=== PATIENT | female | born 1975 | race Caucasian/White ===

== ENCOUNTER 2024-05-10 06:15 | Day surgery (SDC) | payer BC, SELFPAY ==
[2024-05-10 06:22] VITALS: BP 157/85; PULSE 70; RESP 18; TEMP 36.6; O2SAT 97; BMI 24.3
--- NOTE | 2024-05-10 07:11 | ED.GENADULT ---
HPI - General Adult General Chief complaint: General Medical Stated complaint: feels like something is stuck in her throat Time Seen by Provider: 05/10/24 07:06 Source: patient and old records reviewed Mode of arrival: ambulatory Limitations: no limitations History of Present Illness ED Provider: CAROLINA DAVIS narrative: 48 yo female with PMH of hypothyroidism here with c/o eating steak and potatoes she then felt the food get stuck this happened at 630pm yesterday. She tried water, carbonated beverages, marshmellows but it did not help. She has never had EGD before, does not take antacids. She is not on thinners. She cannot tolerate saliva or liquids still. MD complaint: food bolus Onset (ago): day(s) (630pm yesterday) Location: mouth Radiation: non-radiation Severity: moderate Quality: dull Pain Consistency: intermittent Relieving factors: none Exacerbating factors: other (swallowing) Associated symptoms: denies other symptoms Treatments prior to arrival: other Related Data Allergies Allergy/AdvReac Type Severity Reaction Status Date / Time No Known Allergies Allergy Verified 05/10/24 06:24 Review of Systems Review of Systems: Constitutional : No Fever, No Chills, No Fatigue ENT/Mouth : No sore throat, No Rhinorrhea Eyes: No Eye Pain, No Swelling, No Redness Cardiovascular : No Chest Pain, No SOB, No Dyspnea on Exertion Respiratory : No Cough, No Sputum Gastrointestinal : No Nausea, No Vomiting, No Diarrhea, No abdominal Pain Genitourinary : No Dysuria, No Urinary Frequency, No Hematuria, Musculoskeletal : No joint pain, No Myalgias, No Joint Swelling Skin : No Skin Lesions, No rash Neuro : No Weakness, No Numbness, No Dizziness, no Headache All other systems reviewed and are negative [facility] Past Medical History Attestation statement: The following information was validated with the patient. Medical History Hypothyroidism Social History Social History (Updated 05/10/24 @ 07:33 by Adela Arnold DO) Patient Tobacco Use Status: Never used Tobacco Advance Directives: No Advance Directives Information Provided: No Do you have a plan to hurt others: No Plan Physical Exam ED Vital Signs: Vital Signs - 24 hr 05/10/24 06:22 Temperature 97.8 F Pulse Rate 70 Respiratory Rate 18 Blood Pressure 157/85 H Pulse Oximetry 97 Oxygen Delivery Method Room Air BMI result Body Mass Index 24.3 Appearance: Alert. Oriented X3. No acute distress. Eyes: Pupils equal, round and reactive to light. ENT: Pharynx normal. Neck: Normal inspection. Neck supple. CVS: Normal heart rate and rhythm. Pulses normal. Respiratory: No respiratory distress. Breath sounds normal. Abdomen: Soft and non-tender. Skin: Skin warm and dry. Normal skin color. Extremities: No lower extremity edema. Neuro: Oriented X 3. No motor deficit. No sensory deficit. Course Course Course Narrative: no response to glucagon or nitro slurry Medications Administered Generic Name Dose Route Start Last Admin Trade Name Freq PRN Reason Stop Dose Admin Lactated Ringer's 1,000 mls @ 999 mls/hr 05/10/24 07:34 05/10/24 07:50 Lr IV 05/10/24 08:34 999 mls/hr .Q1H1M ONE Administration Discontinued Medications Generic Name Dose Route Start Last Admin Trade Name Freq PRN Reason Stop Dose Admin Glucagon 1 mg 05/10/24 07:10 05/10/24 07:29 Glucagon Hcl 1 Mg Vial IVPUSH 05/10/24 07:11 1 mg ONCE ONE Administration Nitroglycerin 0.4 mg 05/10/24 07:34 05/10/24 07:45 Nitroglycerin 0.4 Mg Tab.Subl SUBLINGUAL 05/10/24 07:35 0.4 mg ONCE ONE Administration Medical Decision Making Medical Decision Making [facility] Narrative: 48 yo female with PMH of hypothyroidism here with c/o food bolus impaction at this time will try glucagon and then start on fluids and oral nitroglycerin. If that does not work will consult GI for endoscopy. Suspect food bolus impaction. Differential Diagnosis Differential Diagnoses: The differential diagnosis associated with the presentation includes food bolus impaction, stricture Admission/Observation Consideration of admission/observation: Escalation of care including admission/observation considered admit to short stay surgery for EGD Consult Healthcare Provider Management of the patient was discussed with: [facility] Nurse (Dr. Wellington sanchez) Lab Data [facility] Lab Attestation statement: I reviewed the patient's lab results. 05/10/24 07:29 05/10/24 07:29 Labs: Lab Results 05/10/24 Range/Units 07: WBC 8.2 (4.8-10.8) X10*3/uL RBC 5.16 (4.20-5.50) X10*6/uL Hgb 16.0 (12.0-16.0) g/dl Hct 45.1 (37.0-47.0) % MCV 87.4 (80.0-98.0) fL MCH 31.0 (27.0-33.0) pg MCHC 35.5 H (31.0-35.0) g/dl RDW 12.4 (11.0-16.0) % Plt Count 238 (160-400) X10*3/uL MPV 10.0 (9.4-12.3) fL Immature Gran % (Auto) 0.4 (0.0-0.4) % Neut % (Auto) 68.8 (45-73) % Lymph % (Auto) 19.5 L (20-40) % [place] % (Auto) 6.7 (2-11) % Eos % (Auto) 3.9 (0-4) % Baso % (Auto) 0.7 (0-2) % Lymph # (Auto) 1.6 (1.2-4.9) X10*3/uL [place] # (Auto) 0.6 (0.1-1.2) X10*3/uL Eos # (Auto) 0.3 (0.0-0.4) X10*3/uL Baso # (Auto) 0.1 (0.0-0.2) X10*3/uL Abs Immat Gran (auto) 0.03 (0.00-0.03) X10*3/uL Absolute Neuts (auto) 5.7 (2.0-8.3) x10*3/uL Absolute Nucleated RBC 0.000 (0.0-0.012) X10*3/uL Nucleated RBC % (auto) 0.0 (0.0-0.2) /100WBC PT 11.2 (11.1-13.3) SEC INR 0.9 (0.9-1.1) Sodium 144 (135-145) mmol/L Potassium 4.2 (3.3-5.1) mmol/L Chloride 107 (96-108) mmol/L Carbon Dioxide 27 (22-29) mmol/L Anion Gap 14 (12-20) BUN 14 (9-16) mg/dL Creatinine 0.76 (0.5-1.4) mg/dL Estim Creat Clear Calc 64.5 Estimated GFR > 60 Random Glucose 112 (60-115) mg/dL Calcium 10.1 (8.4-10.2) mg/dL Independent Historian Clinical information obtained from an independent historian. History obtained from or confirmed by: Spouse Discharge Plan Discharge Clinical Impression: Food impaction of esophagus Patient Disposition: Admitted as Observation Print Language: Austrian
[2024-05-10] MEDS: glucagon HCL 1 MG VIAL IVPUSH (07:29)
[2024-05-10 07:34] LABS: MANUAL DIFF FLAG NO
[2024-05-10 07:39] LABS: Basophils Absolute Auto 0.1 X10*3/uL (0.0-0.2); Basophils Percent Auto 0.7 % (0-2); Eosinophils Absolute Auto 0.3 X10*3/uL (0.0-0.4); Eosinophils Percent Auto 3.9 % (0-4); Hematocrit 45.1 % (37.0-47.0); Imm Gran Abs Auto 0.03 X10*3/uL (0.00-0.03); Imm Gran Pct Auto 0.4 % (0.0-0.4); Lymphocytes Absolute Auto 1.6 X10*3/uL (1.2-4.9); Lymphocytes Percent Auto 19.5 % (20-40); Mean Corpuscular HGB Conc 35.5 g/dl (31.0-35.0); Mean Corpuscular Volume 87.4 fL (80.0-98.0); Monocytes Absolute Auto 0.6 X10*3/uL (0.1-1.2); Monocytes Percent Auto 6.7 % (2-11); Neutrophils Absolute Auto 5.7 x10*3/uL (2.0-8.3); Neutrophils Percent Auto 68.8 % (45-73); Platelet Count 238 X10*3/uL (160-400); Red Blood Count 5.16 X10*6/uL (4.20-5.50); Red Cell Distribution Width 12.4 % (11.0-16.0); White Blood Count 8.2 X10*3/uL (4.8-10.8)
[2024-05-10] MEDS: Nitroglycerin 0.4 MG TAB.SUBL SUBLINGUAL (07:45)
[2024-05-10 07:46] LABS: INTERNATIONAL NORM RATIO 0.9 (0.9-1.1); Prothrombin Time 11.2 SEC (11.1-13.3)
[2024-05-10] MEDS: Lactated Ringers 1,000 ML 999 ML IV (07:50)
[2024-05-10 07:55] LABS: Anion Gap 14 (12-20); Blood Urea Nitrogen 14 mg/dL (9-16); Calcium 10.1 mg/dL (8.4-10.2); Carbon Dioxide 27 mmol/L (22-29); Chloride 107 mmol/L (96-108); Creatinine Clr Calc Pharmacy 64.5; Estimated Glomerular Filt Rate > 60; Glucose Random 112 mg/dL (60-115); Potassium 4.2 mmol/L (3.3-5.1); Sodium 144 mmol/L (135-145)
[2024-05-10] MEDS: LORazepam 2 MG/ML VIAL 0.5 MG IVPUSH (08:12)
[2024-05-10] MEDS: ondansetron HCL 4 MG/2 ML VIAL IVPUSH (08:12)
--- NOTE | 2024-05-10 08:31 | P.CNGI_ITS ---
History of Present Illness Data of Consult Service Date: 05/10/24 Requesting physician: Adela Arnold Primary Care Provider: Akil Betts MD HPI Reason for consult: dysphagia/food impaction 48 YF with hypothyroidism seen at [facility] ED on 05/09/24 with dysphagia due to food impaction. Pt states she was eating steak and potatoes yesterday evening around 6:30 pm and had 2 pieces of steak and felt the food get stuck in the upper esophagus. She tried water, carbonated beverages, marshmellows but it did not help. Pt gives a hx of occasional self limited episodes of dysphagia to solids for the past several months. Dysphagia symptoms would resolve and she did not have to seek medical attention She denies heartburn, asthma or food allergies. She has never had EGD before, does not take antacids. Pt admits to having a colonoscopy a year ago at [facility] [place] [facility] - negative per patient. Pt denies cardiac or pulmonary problems, loud snoring or sleep apnea. She denies being on anticoagulation. In the ED pt was treated with glucagon and Nitro slurry without improvement in her symptoms and states she is unable to tolerate saliva or liquids still. She feels some improvement in chest tightness after she was given Ativan and Zofran. Pt admits to taking ETOH occasionally and denies smoking. She known family history GERD, colon polyps or GI malignancy. 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 Review of Systems 2 Review of Systems: Constitutional : No Fever, No Chills, No Fatigue ENT/Mouth : No sore throat, No Rhinorrhea Eyes: No Eye Pain, No Swelling, No Redness Cardiovascular : No Chest Pain, No SOB, No Dyspnea on Exertion Respiratory : No Cough, No Sputum Gastrointestinal : No Nausea, No Vomiting, No Diarrhea, No abdominal Pain Genitourinary : No Dysuria, No Urinary Frequency, No Hematuria, Musculoskeletal : No joint pain, No Myalgias, No Joint Swelling Skin : No Skin Lesions, No rash Neuro : No Weakness, No Numbness, No Dizziness, no Headache All other systems reviewed and are negative [facility] Past Medical History Medical History Hypothyroidism Social History Social History (Updated 05/10/24 @ 07:33 by Adela Arnold DO) Patient Tobacco Use Status: Never used Tobacco Smoked in Last 30 Days: No Use of substances other than those prescribed or required for medical reasons: No Advance Directives: No Advance Directives Information Provided: No Do you have a plan to hurt others: No Plan Patient : No Meds Allergies Allergy/AdvReac Type Severity Reaction Status Date / Time No Known Allergies Allergy Verified 05/10/24 06:24 Active Medications: Current Medications Lactated Ringer's (Lr) 1,000 mls @ 999 mls/hr IV .Q1H1M ONE Stop: 05/10/24 08:34 Last Admin: 05/10/24 07:50 Dose: 999 mls/hr Lactated Ringer's (Lr) 1,000 mls @ 100 mls/hr IVCONT .Q10H MICHELLE Physical Exam 2 Vital Signs: Vital Signs: Last Vital Signs Temp 97.8 F 05/10/24 06:22 Pulse 70 05/10/24 06:22 Resp 18 05/10/24 06:22 BP 157/85 H 05/10/24 06:22 Pulse Ox 97 05/10/24 06:22 O2 Del Method Room Air 05/10/24 06:22 BMI result Body Mass Index 24.3 Const: General: healthy appearing and no acute distress Nutritional Appearance: average body habitus Orientation/consciousness: patient oriented x3 Limitations: no limitations HEENT: Head: Yes normal to inspection Ears: hearing grossly normal bilaterally Mouth: Normal oral and palatal mucosa present Eyes: Sclerae: sclerae normal Pupils: Equal, round and reactive pupils present Neck: Neck: Yes normal visual inspection Chest: Chest palpation & inspection: normal inspection of the chest Resp: Effort & Inspection: normal respiratory effort Auscultation: clear to auscultation bilaterally Cardio: Palpation: normal PMI Rate: regular rate Rhythm: regular rhythm Heart sounds: S1 normal heart sound present, S2 normal heart sound present and no murmurs GI: Palpation (GI): Soft to palpation, nontender and No hepatosplenomegaly present Auscultation: normal bowel sounds Rectal Exam - Female: deferred Skin: General skin exam: no rashes or lesions noted Neuro: General: patient oriented x3, gait normal and moves all extremities Cranial nerves: Yes Equal, round and reactive pupils present Psych: Appearance: grossly normal Mental Status: mental status grossly normal Results Labs 05/10/24 07:29 05/10/24 07:29 Labs: Short CBC 05/10/24 Range/Units 07:29 WBC 8.2 (4.8-10.8) X10*3/uL Hgb 16.0 (12.0-16.0) g/dl Hct 45.1 (37.0-47.0) % Plt Count 238 (160-400) X10*3/uL BMP 05/10/24 07:29 Sodium 144 Potassium 4.2 Chloride 107 Carbon Dioxide 27 BUN 14 Creatinine 0.76 Calcium 10.1 Assessment and Plan (1) Food impaction of esophagus: Qualifiers: Encounter type: initial encounter Qualified Code(s): T18.128A - Food in esophagus causing other injury, initial encounter; W44.F3XA - Food entering into or through a natural orifice, initial encounter Status: Acute (2) Dysphagia, pharyngoesophageal phase: Status: Acute Plan 48 YF with hypothyroidism seen at [facility] ED on 05/09/24 with dysphagia due to food impaction. Pt states she was eating steak and potatoes yesterday evening around 6:30 pm and had 2 pieces of steak and felt the food get stuck in the upper esophagus. In the ED, pt was treated with glucagon and Nitro slurry without relief of her symptoms. She noted some improvement in chest tightness after receiving ondansetron and ativan RECOMMENDATIONS: 1. Proceed with urgent upper endoscopy today for removal of food bolus EGD procedure and potential complications including bleeding, perforation, reaction to anesthetics and aspiration were reviewed with the patient and her who was at the bedside. Procedures Date of Service Date of Service: 05/10/24
[2024-05-10 08:33] VITALS: BP 112/65; PULSE 67; RESP 16; O2SAT 100
[2024-05-10] MEDS: Lactated Ringers 1,000 ML 100 ML IVCONT (08:50)
--- NOTE | 2024-05-10 09:34 | PC.NURSE ---
report called to OR, patient to be transferred via wheelchair for procedure
[2024-05-10 09:39] LABS: Urine Pregnancy NEGATIVE (NEGATIVE)
[2024-05-10 09:40] LABS: UPreg QC Valid YES
--- NOTE | 2024-05-10 09:40 | P.CONAN_ITS ---
HPI - Anesthesia Eval Consult details Narrative: Esophagus food impaction PMFSH Active Problems Active Problems: All Active Problems Food impaction of esophagus (Acute) Past Medical History Medical History Hypothyroidism Family History Family history of problems with anesthesia: No Surgical History History of Problems with Anesthesia: No Social History Social History (Updated 05/10/24 @ 07:33 by Adela Arnold DO) Patient Tobacco Use Status: Never used Tobacco Smoked in Last 30 Days: No Use of substances other than those prescribed or required for medical reasons: No Advance Directives: No Advance Directives Information Provided: No Do you have a plan to hurt others: No Plan Patient : No Meds Allergies Allergy/AdvReac Type Severity Reaction Status Date / Time No Known Allergies Allergy Verified 05/10/24 06:24 Active Medications: Current Medications Lactated Ringer's (Lr) 1,000 mls @ 100 mls/hr IVCONT .Q10H MICHELLE Last Admin: 05/10/24 08:50 Dose: 100 mls/hr Exam Height,Weight and Vital Signs: Height 4 ft 10 in Weight 52.8 kg Last Vital Signs Temp 97.8 F 05/10/24 06:22 Pulse 67 05/10/24 08:33 Resp 16 05/10/24 08:33 BP 112/65 05/10/24 08:33 Pulse Ox 100 05/10/24 08:33 O2 Del Method Room Air 05/10/24 08:33 Pertinent Lab Results Pertinent Lab Results: Laboratory Tests 05/10/24 05/10/24 07:29 09:27 WBC 8.2 RBC 5.16 Hgb 16.0 Hct 45.1 MCV 87.4 MCH 31.0 MCHC 35.5 H RDW 12.4 Plt Count 238 MPV 10.0 Immature Gran % (Auto) 0.4 Neut % (Auto) 68.8 Lymph % (Auto) 19.5 L [place] % (Auto) 6.7 Eos % (Auto) 3.9 Baso % (Auto) 0.7 Lymph # (Auto) 1.6 [place] # (Auto) 0.6 Eos # (Auto) 0.3 Baso # (Auto) 0.1 Abs Immat Gran (auto) 0.03 Absolute Neuts (auto) 5.7 Absolute Nucleated RBC 0.000 Nucleated RBC % (auto) 0.0 PT 11.2 INR 0.9 Sodium 144 Potassium 4.2 Chloride 107 Carbon Dioxide 27 Anion Gap 14 BUN 14 Creatinine 0.76 Estim Creat Clear Calc 64.5 Estimated GFR > 60 Random Glucose 112 Calcium 10.1 Urine Test NEGATIVE Airway Mallampati Class: I TM Dist: >3cm Neck ROM: Full Loose/Missing/Broken Teeth: No Heart: RRR Lungs: CTA Assessment and Plan Assessment Anesthesia Assessment: Anesthesia Plan Discussed and Chart Reviewed Final Anesthetic Review Family History of Problems with Anesthesia: No History of Problems with Anesthesia: No NPO: No ASA Class: II Final Preanesthetic Review: No Changes in Pt Med Stat, Meds/Allgs Chart Reviewed, Consent Obtained/Reviewed and Anes Risks/Benef Reviewed Patient Risk: Intermediate Procedure Risk: Low Assessment/Block/Sedation in SS: Assess/Block/Sedation-SS Anesthetic Plan Anesthetic Plan: GA Disposition: Standard PACU
--- NOTE | 2024-05-10 10:04 | W.PM.OPN ---
Operative Note Operative Note Date of Service: 05/10/24 Narrative: FLEXIBLE TRANSORAL UPPER GASTROINTESTINAL ENDOSCOPY WITH BIOPSIES Pre-op diagnosis: Dysphagia, food impaction Post-op diagnosis: dysphagia likely due to suspected eosinophilic esophagitis, esophageal polyp Endoscopist:? Tsering Paris MD Anesthesia:?MAC UPPER ENDOSCOPY Consent: Indications for the procedure and potential complications of bleeding, perforation, reaction to medications and missed diagnosis were discussed with the patient and informed consent was obtained. Instrument: Olympus GIF H 190 mid size upper endoscope Monitoring: Vital signs and clinical assessment, continuous EKG monitoring, Pulse oximetry, Carbon Dioxide monitoring and blood pressure monitoring were done throughout the procedure. Procedure: The patient was placed in the left lateral decubitis position and pre-procedure medications were administered and a bite block was placed. The endoscope was inserted into the mouth and advanced under direct vision to the third part of duodenum. A careful inspection was made as the upper endoscope was withdrawn including a retroflexed examination of the proximal stomach; Findings and interventions are described below. Findings: Larynx: Normal Esophagus: GE junction at 32 cms. No food bolus was seen - likely passed into the stomach. Mucosa of distal esophagus appeared raw and inflammed. A 2 - 3 mm polyp in the distal esophagus at 30 cms - biopsied Mildly tortuous esophagus with linear furrows suggestive of EOE. Biopsies were obtained from the proximal, mid and distal esophagus to check for EOE Stomach: Normal gastric mucosa with a food bolus lying in the gastric body. Grade 2 flap valve on retroflexed examination of the cardia. Duodenum: Normal bulb and descending duodenum Intervention: Biopsies as noted above Impression and Post Procedure Diagnosis: Endoscopy Findings: ESOPHAGUS: No food impaction seen - Food bolus had passed into the stomach likely just prior to EGD Linear furrows and exudate in the esophagus - biopsied to check for EOE STOMACH: Normal with food bolus in the gastric body Plan: Pt can be discharged home today I will contact the patient with biopsy results Omeprazole 20 mg twice daily Repeat EGD with dilation and esophageal biopsies in 3-4 months (if diagnosis of EOE is confirmed or if pt continues to have dysphagia) Above findings were reviewed with the patient and relevant handouts were given and the discharge area.
[2024-05-10 10:10] VITALS: BP 95/47; PULSE 69; RESP 17; TEMP 36.4; O2SAT 96
[2024-05-10 10:25] VITALS: BP 114/70; PULSE 69; RESP 16; O2SAT 95
[2024-05-10 10:40] VITALS: BP 110/68; PULSE 65; RESP 16; O2SAT 96
[2024-05-10 10:55] VITALS: BP 119/69; PULSE 65; RESP 16; TEMP 36.4; O2SAT 96
--- OUTSIDE RECORDS SUMMARY | 2024-05-11 00:35 | XMS_ITS | Continuity of Care Document ---
Author Organization [facility] Daniel Yury Address [address] [place] [address]- Care Team Providers Care House Wirer Helper Name Role Phone Akil Betts MD Primary Care Physician [phone] Encounter [facility] Date(s): 08/31/23 - 09/07/23 [facility] Adult [address] [place] [address]- Encounter Diagnosis Hypothyroidism(Discharge Diagnosis) - 08/31/23 Hypercholesterolemia(Discharge Diagnosis) - 08/31/23 Attending Physician: Akil Betts MD Allergies, Adverse Reactions, Alerts No Known Allergies Immunizations Given and Recorded Vaccine Date Status Refusal Reason SARS-CoV-2 (COVID-19) mRNA-1273 vaccine 12/20/20 R ecorded SARS-CoV-2 (COVID-19) mRNA-1273 vaccine 11/22/20 R ecorded Influenza Virus Vaccine (oldterm) 06/22/20 Recorde d tetanus/diphtheria/pertussis, acel(Tdap) 07/06/15 Given FluLaval (oldterm) 1 08/18/10 Given Tetanus Toxoid Vaccine (oldterm) 09/17/04 Given 1Admin Note: [facility] [place] Medications atorvastatin 10 mg oral tablet 1 tablet = 10 mg, By Mouth, Daily, # 90 tablet, 3 Refills, Maintenance, 08/31/23 13:39:00 EST, [facility], Partial fill upon patient request if the prescription is for a schedule II opioid drug., 147.5, cm, 08/31/23 13:27:00 EST, Height Start Date: 08/31/23 Status: Ordered levothyroxine 0.05 mg oral tablet 1 tablet = 50 mcg, By Mouth, Daily, # 90 tablet, 3 Refills, Maintenance, 08/31/23 13:37:00 EST, Tablet, [facility], Partial fill upon patient request if the prescription is for a schedule IIopioid drug., 147.5, cm, 08/31/23 13:27:00 EST, Height Start Date: 08/31/23 Status: Ordered Mirena 52 mg intrauteral device 1 each = 52 mg, Vaginally, Once, # 1 each, 0 Refills, Maintenance Start Date: 08/18/10 Status: Ordered Problem List Condition Confirmation Course Effective Dates Status Health Status Informant Glucose intolerance Confirmed Active Diverticulosis 1 Confirmed Active Internal and external hemorrhoids without complication 2 Confirmed Active History of colonoscopy 3 Confirmed Active Hypercholesterolemia Confirmed Active Hypothyroidism Confirmed Active Abnormal liver function test Confirmed Active 1colo 2022 2colo 202223; repeat 2032 Diagnosis Diagnosis Type Effective Dates Health Status Clinical Service Informant Hypothyroidism Discharge Diagnosis 08/31/23 Hypercholesterolemia Discharge Diagnosis 08/31/23 Vital Signs Most recent to oldest [Reference Range]: 1 Height 147.5 cm (08/31/23 1:27 PM) Weight 55.0 kg (08/31/23 1:27 PM) Oxygen Saturation [94-100 %] 100 % (08/31/23 1:27 PM) Pulse Rate [55-90 bpm] 78 bpm (08/31/23 1:27 PM) Body Mass Index [18.5-24.99 kg/m2] 25.28 kg/m2 *H* (08/31/23 1:27 PM) Blood Pressure [90-138/55-84 mm Hg] 122/ 85mm Hg (08/31/23 1:27 PM) Respiratory Rate [16-30 br/min] 20 br/mi n (08/31/23 1:27 PM) Temperature [96.8-100.4 DegF] 97.7 DegF (08/31/23 1:27 PM) Mode of Delivery (Oxygen) Room air (08/31/23 1:27 PM) Blood pressure sites Arm, left (08/31/23 1:27 PM) Temperature Route Oral (08/31/23 1:27 PM) Weight Obtained Via Standing scale (08/31/23 1:27 PM) Social History Social History Type Response Smoking Status Never smoker entered on: 07/10/16 Sex Patient Care team information Care Team Personnel Name: Roxane SANCHEZ, Akil Hightower: [facility] Physician - Primary Care Member Role: PCP Address: Address: [address] [place] [address]- Care Team Related Persons Name: HECTOR BOWERS Address: home [address] [place] [address]
--- OUTSIDE RECORDS SUMMARY | 2024-05-11 00:35 | XMS_ITS | Continuity of Care Document ---
Author Organization [facility] Daniel Yury lt Address [address] [place] [address]- Care Team Providers Care Traffic Division Commanding Officer Name Role Phone Roxane SANCHEZ, Akil Carrillo Primary Care Physician [phone] Encounter [facility] Date(s): 03/16/22 - 04/15/22 [facility] [place] Adult [address] [place] [address]- Allergies, Adverse Reactions, Alerts No Known Allergies Immunizations Given and Recorded Vaccine Date Status Refusal Reason SARS-CoV-2 (COVID-19) mRNA-1273 vaccine 12/20/20 R ecorded SARS-CoV-2 (COVID-19) mRNA-1273 vaccine 11/22/20 R ecorded Influenza Virus Vaccine (oldterm) 06/22/20 Recorde d tetanus/diphtheria/pertussis, acel(Tdap) 07/06/15 Given FluLaval (oldterm) 1 08/18/10 Given Pneumococcal Vaccine (oldterm) 2 09/17/04 Given Tetanus Toxoid Vaccine (oldterm) 09/17/04 Given 1Admin Note: [facility] 2Result Comment: error Medications levothyroxine 75 mcg (0.075 mg) oral tablet 1 tablet = 75 mcg, By Mouth, Daily, # 90 tablet, 3 Refills, Maintenance, 08/15/21 14:08:00 EST, Tablet, [facility], Partial fill upon patient request, 151, cm, 08/15/21 14:01:00 EST, Height Start Date: 08/15/21 Status: Ordered Mirena 52 mg intrauteral device 1 each = 52 mg, Vaginally, Once, # 1 each, 0 Refills, Maintenance Start Date: 08/18/10 Status: Ordered Problem List Condition Effective Dates Status Health Status Inform ant Glucose intolerance(Confirmed) Active Hypercholesterolemia(Confirmed) Active Hypothyroidism(Confirmed) Active Abnormal liver function test(Confirmed) Active Social History Social History Type Response Smoking Status Never smoker entered on: 07/10/16 Sex
--- OUTSIDE RECORDS SUMMARY | 2024-05-11 00:35 | XMS_ITS | Continuity of Care Document ---
Author Organization [facility] Yury lt Address [address] [place] [address]- Care Team Providers Care Hand Sample Maker Name Role Phone Roxane SANCHEZ, Akil Carrillo Primary Care Physician En[place] [facility] [place](s): 12/24/23 - 01/23/24 [facility] Adult [address] [place] [address]- Allergies, Adverse Reactions, Alerts No Known Allergies Immunizations Given and Recorded Vaccine Date Status Refusal Reason SARS-CoV-2 (COVID-19) mRNA-1273 vaccine 12/20/20 R ecorded SARS-CoV-2 (COVID-19) mRNA-1273 vaccine 11/22/20 R ecorded Influenza Virus Vaccine (oldterm) 06/22/20 Recorde d tetanus/diphtheria/pertussis, acel(Tdap) 07/06/15 Given FluLaval (oldterm) 1 08/18/10 Given Tetanus Toxoid Vaccine (oldterm) 09/17/04 Given 1Admin Note: [facility] Medications atorvastatin 10 mg oral tablet 1 tablet = 10 mg, By Mouth, Daily, # 90 tablet, 3 Refills, Maintenance, 08/31/23 13:39:00 EST, [facility], Partial fill upon patient request if the prescription is for a schedule II opioid drug., 147.5, cm, 08/31/23 13:27:00 EST, Height Start Date: 08/31/23 Status: Ordered levothyroxine 75 mcg (0.075 mg) oral tablet 1 tablet = 75 mcg, By Mouth, Daily, # 90 tablet, 3 Refills, Maintenance, 11/16/23 13:20:00 EST, Tablet, [facility], Partial fill upon patient request if the prescription is for a schedule IIopioid drug., 147.5, cm, 11/16/23 13:11:00 EST, Height Start Date: 11/16/23 Status: Ordered Mirena 52 mg intrauteral device 1 each = 52 mg, Vaginally, Once, # 1 each, 0 Refills, Maintenance Start Date: 08/18/10 Status: Ordered Problem List Condition Confirmation Course Effective Dates Status Health Status Informant Glucose intolerance Confirmed Active Diverticulosis 1 Confirmed Active Emotional stress Confirmed Active Internal and external hemorrhoids without complication 2 Confirmed Active History of colonoscopy 3 Confirmed Active Hypercholesterolemia Confirmed Active Hypothyroidism Confirmed Active Abnormal liver function test Confirmed Active 1colo 2022 2colo 2022 28236; repeat 2032 Social History Social History Type Response Smoking Status Never smoker entered on: 07/10/16 Sex Patient Care team information Care Team Personnel Name: Akil Betts MD Position: S Physician - Primary Care Member Role: PCP Address: Address: [address] [place] [id number]- Care Team Related Persons Name: HECTOR BOWERS Address: home [address]
--- OUTSIDE RECORDS SUMMARY | 2024-05-11 00:35 | XMS_ITS | Continuity of Care Document ---
Author Organization [facility] Address [address] [facility] [place] [address]- Care Team Providers Care Residential Interior Designer Name Role Phone Akil Betts MD Primary Care Physician Encounter 09/29/22 - 10/06/22 [facility] [address], [address] [place] [address]- Attending Physician: Akil Betts MD Admitting Physician: Akil Betts MD Referring Physician: Akil Betts MD Allergies, Adverse Reactions, [...] Toxoid Vaccine (oldterm) 09/17/04 Given 1Admin Note: [employer] 2Result Comment: error Medications levothyroxine 75 mcg (0.075 mg) oral tablet 1 tablet = 75 mcg, By Mouth, Daily, # 90 tablet, 3 Refills, Maintenance, 08/21/22 14:24:00 EST, Tablet, [facility], Partial fill upon patient request, 151, cm, 08/21/22 14:10:00 EST, Height Start Date: 08/21/22 Status: Ordered Mirena 52 mg intrauteral device 1 each = 52 mg, Vaginally, Once, # 1 each, 0 Refills, Maintenance Start Date: 08/18/10 Status: Ordered Problem List Condition Confirmation Course Effective Dates Status Health Status Informant Glucose intolerance Confirmed Active Hypercholesterolemia Confirmed Active Hypothyroidism Confirmed Active Abnormal liver function test Confirmed Active Results Radiology Reports * Exam Date Time Procedure Performing Provider Status 09/29/22 10:25 AM MM Digital Mammo Screening Girma Briana Allen; Eliecer (Verified) Notes: (MM Digital Mammo Screening) Reason For Exam: Screening RESULT: MM Digital Mammo Screening PROCEDURE: MM Digital Mammo Screening INDICATION: Screening for breast cancer. No known palpable abnormalities. Family history of breast cancer in mother at the age of 64. COMPARISON: Priors, most recent dated 06/20/2019 TECHNIQUE: Full-field digital CC and MLO 3D tomosynthesis images of both breasts were acquired. Computer-aided detection (CAD) was utilized in the interpretation of this study. DENSITY: The breast tissue contains scattered areas of fibroglandular density. FINDINGS: No suspicious masses, suspicious microcalcifications, or areas of architectural distortion are seen in either breast to suggest malignancy. Stable focal asymmetry in the lateral posterior right breast, not significantly changed since 2016. IMPRESSION: No mammographic evidence of malignancy. RECOMMENDATION: Routine mammographic screening BI-RADS: 2 (Benign) Lay letter mailed to patient WSN: [id number] Ordering Physician: Akil Betts Dictated By: Lana Au MD Dictated Date/Time: 09/29/22 12:58 pm Reviewed By: Lana Au MD Signed By: Lana Au MD Signed Date/Time: 09/29/22 12:58 pm Transcribed By: LISANDRA Extension Educator Date/Time: 09/29/22 12:54 pm Birads: Social History Social History Type Response Smoking Status Never smoker entered on: 07/10/16 Sex MG Breast Screening * [facility] , CIS S: TRANSCRIBE Lana Au MD: VERIFY Event Display: Result: Authored Date: [id number] PROCEDURE: MM Digital Mammo Screening INDICATION: Screening for breast cancer. No known palpable abnormalities. Family history of breast cancer in mother at the age of 64. COMPARISON: Priors, most recent dated 06/20/2019 TECHNIQUE: Full-field digital CC and MLO 3D tomosynthesis images of both breasts were acquired. Computer-aided detection (CAD) was utilized in the interpretation of this study. DENSITY: The breast tissue contains scattered areas of fibroglandular density. FINDINGS: No suspicious masses, suspicious microcalcifications, or areas of architectural distortion are seen in either breast to suggest malignancy. Stable focal asymmetry in the lateral posterior right breast, not significantly changed since 2016. IMPRESSION: No mammographic evidence of malignancy. RECOMMENDATION: Routine mammographic screening BI-RADS: 2 (Benign) Lay letter mailed to patient WSN: [id number] Ordering Physician: Akil Betts Dictated By: Lana Au MD Dictated Date/Time: 09/29/22 12:58 pm Reviewed By: Lana Au MD Signed By: Lana Au MD Signed Date/Time: 09/29/22 12:58 pm Transcribed By: LISANDRA Extension Educator Date/Time: 09/29/22 12:54 pm Birads: Patient Care team information Care Team Personnel Name: Akil Betts MD Position: S Primary Care Physician Member Role: PCP Address: Address: [address] [place] [address]- Care Team Related Persons Name: HECTOR BOWERS Address: home [address] [facility] [id number]
--- OUTSIDE RECORDS SUMMARY | 2024-05-11 00:35 | XMS_ITS | Continuity of Care Document ---
Author Organization [facility] Address [address] [place] [address]- Care Team Providers Care Timber Sizer Operator Name Role Phone Akil Betts MD Primary Care Physician En[place] [facility] [place](s[place] 08/21/22 - 08/28/22 [facility] Adult [address] [place] [address]- Encounter Diagnosis Hypercholesterolemia(Discharge Diagnosis) - 08/21/22 Hypothyroidism(Discharge Diagnosis) - 08/21/22 Attending Physician: Akil Betts MD Allergies, Adverse [...] Toxoid Vaccine (oldterm) 09/17/04 Given 1Admin Note: [employer] 2Result Comment: error Medications levothyroxine 75 mcg [...] Active Abnormal liver function test Confirmed Active Diagnosis Diagnosis Type Effective Dates Health Status Clinical Service Informant Hypercholesterolemia Discharge Diagnosis 08/21/22 Hypothyroidism Discharge Diagnosis 08/21/22 Vital Signs Most recent to oldest [Reference Range]: 1 Height 151.00 cm (08/21/22 2:10 PM) Weight 52.7 kg (08/21/22 2:10 PM) Oxygen Saturation [94-100 %] 98 % (08/21/22 2:10 PM) Pulse Rate [55-90 bpm] 66 bpm (08/21/22 2:10 PM) Body Mass Index [18.5-24.99 kg/m2] 23.11 kg/m2 (08/21/22 2:10 PM) Blood Pressure [90-138/55-84 mm Hg] 98/5 8mm Hg (08/21/22 2:10 PM) Mode of Delivery (Oxygen) Room air (08/21/22 2:10 PM) Blood pressure sites Arm, left (08/21/22 2:10 PM) Weight Obtained Via Standing scale (08/21/22 2:10 PM) Social History Social History Type Response Smoking Status Never smoker entered on: 07/10/16 Sex Patient Care team information Care Team Personnel Name: Roxane SANCHEZ, Akil Carrillo Position: S Primary Care Physician Member Role: PCP Address: Address: [address] [place] [address]- Care Team Related Persons Name: HECTOR BOWERS Address: home [address]
--- OUTSIDE RECORDS SUMMARY | 2024-05-11 00:35 | XMS_ITS | Continuity of Care Document ---
Author Organization [facility] Daniel Y[facility] Address [address] [place] [address]- Care Team Providers Care Senior Climate Advisor Name Role Phone Roxane SANCHEZ, Akil Carrillo Primary Care Physician [place] [facility] [place] 02[place]28[place]22 - 03/07/22 [facility] [place] Adult [address] [place] [address]- Encounter Diagnosis Acute otitis media, left(Discharge Diagnosis) - 02/28/22 Attending Physician: Not on Staff, Attending MD Allergies, Adverse Reactions, Alerts No Known Allergies Immunizations Given and Recorded Vaccine Date Status Refusal Reason SARS-CoV-2 (COVID-19) mRNA-1273 vaccine 12/20/20 R ecorded SARS-CoV-2 (COVID-19) mRNA-1273 vaccine 11/22/20 R ecorded Influenza Virus Vaccine (oldterm) 06/22/20 Recorde d tetanus/diphtheria/pertussis, acel(Tdap) 07/06/15 Given FluLaval (oldterm) 1 08/18/10 Given Pneumococcal Vaccine (oldterm) 2 09/17/04 Given Tetanus Toxoid Vaccine (oldterm) 09/17/04 Given 1Admin Note: [employer] 2Result Comment: error Medications levothyroxine 75 mcg [...] Hypothyroidism(Confirmed) Active Abnormal liver function test(Confirmed) Active Diagnosis Diagnosis Type Effective Dates Health Status Cl inical Service Informant Acute otitis media, left Discharge Diagnosis 02/28/22 Vital Signs Most recent to oldest [Reference Range]: 1 Height 151.00 cm (02/28/22 8:19 AM) Weight 50.2 kg (02/28/22 8:19 AM) Oxygen Saturation [94-100 %] 99 % (02/28/22 8:19 AM) Pulse Rate [55-90 bpm] 54 bpm *L* (02/28/22 8:19 AM) Body Mass Index [18.5-24.99] 22.02 (02/28/22 8:19 AM) Blood Pressure [90-138/55-84 mm Hg] 126/ 74mm Hg (02/28/22 8:19 AM) Temperature [96.8-100.4 DegF] 98.2 DegF (02/28/22 8:19 AM) Mode of Delivery (Oxygen) Nasal cannula (02/28/22 8:19 AM) Blood pressure sites Arm, left (02/28/22 8:19 AM) Temperature Route Oral (02/28/22 8:19 AM) Weight Obtained Via Standing scale (02/28/22 8:19 AM) Social History Social History Type Response Smoking Status Never smoker entered on: 07/10/16 Sex
--- OUTSIDE RECORDS SUMMARY | 2024-05-11 00:35 | XMS_ITS | Continuity of Care Document ---
Author Organization [facility] Address [address] [place] [address]- Care Team Providers Care Sales Agent Fire Insurance Name Role Phone Akil Betts MD Primary Care Physician [phone] Encounter [facility] [place] Date(s): 08/15/21 - 08/22/21 [facility] Adult [address] [place] [address]- Encounter Diagnosis Hypothyroidism(Discharge Diagnosis) - 08/15/21 Hypercholesterolemia(Discharge Diagnosis) - 08/15/21 Attending Physician: Akil Betts MD Allergies, Adverse Reactions, Alerts Substance Reaction Severity Status NKA Active Immunizations Given and Recorded Vaccine Date Status Refusal Reason SARS-CoV-2 (COVID-19) mRNA-1273 vaccine 12/20/20 R ecorded SARS-CoV-2 (COVID-19) mRNA-1273 vaccine 11/22/20 R ecorded Influenza Virus Vaccine (oldterm) 06/22/20 Recorde d tetanus/diphtheria/pertussis, acel(Tdap) 07/06/15 Given FluLaval (oldterm) 1 08/18/10 Given Pneumococcal Vaccine (oldterm) 2 09/17/04 Given Tetanus Toxoid Vaccine (oldterm) 09/17/04 Given 1Admin Note: [employer] 2Result Comment: error Medications levothyroxine 75 mcg [...] Status Clinical Service Informant Hypothyroidism Discharge Diagnosis 08/15/21 Hypercholesterolemia Discharge Diagnosis 08/15/21 Vital Signs Most recent to oldest [Reference Range]: 1 Height 151.00 cm (08/15/21 2:01 PM) Weight 51.8 kg (08/15/21 2:01 PM) Oxygen Saturation [94-100 %] 98 % (08/15/21 2:01 PM) Pulse Rate [55-90 bpm] 52 bpm *L* (08/15/21 2:01 PM) Body Mass Index [18.5-24.99] 22.72 (08/15/21 2:01 PM) Blood Pressure [90-138/55-84 mm Hg] 120/ 74mm Hg (08/15/21 2:01 PM) Mode of Delivery (Oxygen) Room air (08/15/21 2:01 PM) Blood pressure sites Arm, left (08/15/21 2:01 PM) Weight Obtained Via Standing scale (08/15/21 2:01 PM) Social History Social History Type Response Smoking Status Never smoker entered on: 07/10/16 Sex
--- OUTSIDE RECORDS SUMMARY | 2024-05-11 00:35 | XMS_ITS | Continuity of Care Document ---
Author Organization [facility] Y[facility] Address [address] [place] [address]- Care Team Providers Care Airport Operations Specialist Name Role Phone Akil Betts MD Primary Care Physician Encounter [facility] Date(s): 11/16/23 - 11/23/23 [facility] Adult [address] [place] [address]- Encounter Diagnosis Hypercholesterolemia(Discharge Diagnosis) - 11/16/23 Hypothyroidism(Discharge Diagnosis) - 11/16/23 Attending Physician: Akil Betts MD Allergies, Adverse Reactions, Alerts No Known Allergies Immunizations Given and Recorded Vaccine Date Status Refusal Reason SARS-CoV-2 (COVID-19) mRNA-1273 vaccine 12/20/20 R ecorded SARS-CoV-2 (COVID-19) mRNA-1273 vaccine 11/22/20 R ecorded Influenza Virus Vaccine (oldterm) 06/22/20 Recorde d tetanus/diphtheria/pertussis, acel(Tdap) 07/06/15 Given FluLaval (oldterm) 1 08/18/10 Given Tetanus Toxoid Vaccine (oldterm) 09/17/04 Given 1Admin Note: [facility] Medications atorvastatin 10 mg oral tablet 1 tablet = 10 mg, By Mouth, Daily, # 90 tablet, 3 Refills, Maintenance, 08/31/23 13:39:00 EST, [facility], Partial fill upon patient [...] test Confirmed Active 1colo 2022 2colo 2022 96235; repeat 2032 Diagnosis Diagnosis Type Effective Dates Health Status Clinical Service Informant Hypercholesterolemia Discharge Diagnosis 11/16/23 Hypothyroidism Discharge Diagnosis 11/16/23 Vital Signs Most recent to oldest [Reference Range]: 1 Height 147.5 cm (11/16/23 1:11 PM) Weight 55.1 kg (11/16/23 1:11 PM) Oxygen Saturation [94-100 %] 97 % (11/16/23 1:11 PM) Pulse Rate [55-90 bpm] 63 bpm (11/16/23 1:11 PM) Body Mass Index [18.5-24.99 kg/m2] 25.33 kg/m2 *H* (11/16/23 1:11 PM) Blood Pressure [90-138/55-84 mm Hg] 112/ 70mm Hg (11/16/23 1:11 PM) Weight Obtained Via Standing scale (11/16/23 1:11 PM) Social History Social History Type Response Smoking Status Never smoker entered on: 07/10/16 Sex Patient Care team information Care Team Personnel Name: Akil Betts MD Position: [facility] Physician - Primary Care Member Role: PCP Address: Address: [address] [place] [address]- Care Team Related Persons Name: HECTOR BOWERS Address: [address]
--- OUTSIDE RECORDS SUMMARY | 2024-05-11 00:35 | XMS_ITS | Continuity of Care Document ---
Author Organization [facility] Daniel Y[facility] lt Address [address] [place] [address]- Care Team Providers Care Merchandise Presentation Associate Name Role Phone Roxane SANCHEZ, Akil Carrillo Primary Care Physician Encounter [facility] [place] Date(s): 08/03/20 - 09/02/20 [facility] Adult [address] [place] [address]- Allergies, Adverse Reactions, Alerts Substance Reaction Severity Status NKA Active Immunizations Given and Recorded Vaccine Date Status Refusal Reason Influenza Virus Vaccine (oldterm) 06/22/20 Recorde d tetanus/diphtheria/pertussis, acel(Tdap) 07/06/15 Given FluLaval (oldterm) 1 08/18/10 Given Pneumococcal Vaccine (oldterm) 2 09/17/04 Given Tetanus Toxoid Vaccine (oldterm) 09/17/04 Given 1Admin Note: [employer] [facility] 2Result Comment: error Medications levothyroxine 75 mcg (0.075 mg) oral tablet 1 tablet = 75 mcg, By Mouth, Daily, # 90 tablet, 3 Refills, Maintenance, 08/10/20 15:12:00 EST, Tablet, [facility], Partial fill upon patient request, 151, cm, 08/10/20 14:48:00 EST, Height Start Date: 08/10/20 Status: Ordered Mirena 52 mg intrauteral device 1 each = 52 mg, Vaginally, Once, # 1 each, 0 Refills, Maintenance Start Date: 08/18/10 Status: Ordered Problem List Condition Effective Dates Status Health Status Inform ant Hypercholesterolemia(Confirmed) Active Hypothyroidism(Confirmed) Active Abnormal liver function test(Confirmed) Active Social History Social History Type Response Smoking Status Never smoker entered on: 07/10/16 Sex
--- OUTSIDE RECORDS SUMMARY | 2024-05-11 00:35 | XMS_ITS | Continuity of Care Document ---
Author Organization [facility] Daniel Y[facility] Address [address] [place] [address]- Care Team Providers Care Vp Treasurer Name Role Phone Roxane SANCHEZ, Akil Carrillo Primary Care Physician [phone] [place] [facility] [place]/02[place]24 - 05/02/24 [facility] Adult [address] [place] [address]- Allergies, Adverse Reactions, Alerts No Known Allergies Immunizations Given and Recorded Vaccine Date Status Refusal Reason SARS-CoV-2 (COVID-19) mRNA-1273 vaccine 12/20/20 R ecorded SARS-CoV-2 (COVID-19) mRNA-1273 vaccine 11/22/20 R ecorded Influenza Virus Vaccine (oldterm) 06/22/20 Recorde d tetanus/diphtheria/pertussis, acel(Tdap) 07/06/15 Given FluLaval (oldterm) 1 08/18/10 Given Tetanus Toxoid Vaccine (oldterm) 09/17/04 Given 1Admin Note: [employer] [facility] Medications atorvastatin 10 mg oral tablet 1 tablet = 10 mg, By Mouth, Daily, # 90 tablet, 3 Refills, Maintenance, 08/31/23 13:39:00 EST, [facility], Partial fill upon [...] test Confirmed Active 1colo 2022 2colo 2022 42001; repeat 2032 Social History Social History Type Response Smoking Status Never smoker entered on: 07/10/16 Sex Patient Care team information Care Team Personnel Name: Akil Betts MD Position: S Physician - Primary Care Member Role: PCP Address: Address: [address] [place] [address]- Care Team Related Persons Name: HECTOR BOWERS Address: home [address] [place] [address]
--- OUTSIDE RECORDS SUMMARY | 2024-05-11 00:35 | XMS_ITS | Continuity of Care Document ---
Author Organization [facility] Daniel Y[facility] lt Address [address] [place] [address]- Care Team Providers Care Autism Teacher Name Role Phone Roxane SANCHEZ, Akil Carrillo Primary Care Physician Encounter [facility] [place] Date(s): 02/28/22 - 03/30/22 [facility] [place] Adult [address] [place] [address]- Attending Physician: Admtr, Ar8 Allergies, Adverse Reactions, Alerts No Known Allergies Immunizations Given and Recorded Vaccine Date Status Refusal Reason SARS-CoV-2 (COVID-19) mRNA-1273 vaccine 12/20/20 R ecorded SARS-CoV-2 (COVID-19) mRNA-1273 vaccine 11/22/20 R ecorded Influenza Virus Vaccine (oldterm) 06/22/20 Recorde d tetanus/diphtheria/pertussis, acel(Tdap) 07/06/15 Given FluLaval (oldterm) 1 08/18/10 Given Pneumococcal Vaccine (oldterm) 2 09/17/04 Given Tetanus Toxoid Vaccine (oldterm) 09/17/04 Given 1Admin Note: [email or web address] 2Result Comment: error Medications levothyroxine 75 mcg [...]
--- NOTE | 2024-05-11 14:53 | HO.POSTANES ---
Post Anesthesia Evaluation Post Anesthesia Evaluation Date of Service: 05/11/24 Anesthesia: Monitored Mental Status: Awake Pain Control: Satisfactory Nausea/Vomiting: None Hydration: Adequate Anesthesia-Related Issues: No Anes. Related Issues
== END 2024-05-10 11:00 | disposition home or self-care (01) ==
LOC: HO.ED 08:05 → HO.SSS 08:22
PROVIDERS: Emergency Provider Emergency Medicine; PCP Internal Medicine; Visit Provider Internal Medicine Gastroenterology
PROC: 0DJ08ZZ Inspection of Upper Intestinal Tract, Via Natural or Artificial Opening Endoscopic (ICD-10-PCS; CPT 43235; principal; 2024-05-10 09:30)
DX: K20.0 Eosinophilic esophagitis (principal); K22.81 Esophageal polyp; R13.14 Dysphagia, pharyngoesophageal phase; T18.128A Food in esophagus causing other injury, initial encounter; W44.F3XA Food entering into or through a natural orifice, initial encounter; Y93.9 Activity, unspecified; Y92.9 Unspecified place or not applicable; Y99.9 Unspecified external cause status
CPT/HCPCS: 43239; 36415; 80048; 81025; 85025; 85610; 88305; 96361; 96374; 96375; 99285; J1610; J2060; J2405; J2704; J3010; J7120

== ENCOUNTER → 2024-05-10 08:12 | Outpatient (BNV) | payer BC, SELFPAY | PROVIDERS: Emergency Provider Emergency Medicine; PCP Internal Medicine; Visit Provider Internal Medicine Gastroenterology | DX: T18.128A Food in esophagus causing other injury, initial encounter (principal); W44.F3XA Food entering into or through a natural orifice, initial encounter; R13.14 Dysphagia, pharyngoesophageal phase; K22.81 Esophageal polyp; K20.90 Esophagitis, unspecified without bleeding | CPT/HCPCS: 43239; 99283 ==